=== PATIENT | female | born 1995 | race American Indian/Alaskan Native ===

== ENCOUNTER 2018-03-01 22:18 | Emergency (ER) | payer SELFPAY ==
[2018-03-01 22:25] VITALS: BP 128/78
[2018-03-01] MEDS ORDERED: NORCO 5/325 PO ONE (23:02)
[2018-03-01] MEDS ORDERED: MOTRIN PO ONE (23:02)
--- NOTE | 2018-03-01 23:03 | Emergency Department Report ---
Upper Extremity - HPI Chief Complaint: Extremity Injury, Upper Stated Complaint: RT THUMB PAIN Time Seen by Provider: 03/01/18 23:02 Upper Extremity: Right Thumb Occurred When: Today Mechanism: Crush Severity: moderate Symptoms: Yes Pain with Movement, Yes Swelling, Yes Bruising/Ecchymosis, No Deformity, No Limited Range of Movement, No Numbness, No Weakness, No Laceration or Abrasion Other History: 22-year-old female past medical history none presents with complaint of distal right thumb pain. Patient states that she accidentally smashed the tip of her right thumb on patio door frame earlier this evening. Denies any other injuries. No visible external lacerations. Patient is awake alert and oriented 3 not in acute distress. Small subungual hematoma visible right thumbnail ED Review of Systems ROS: Stated complaint: RT THUMB PAIN Other details as noted in HPI Constitutional: denies: chills, fever Eyes: denies: eye pain, eye discharge, vision change ENT: denies: ear pain, throat pain Respiratory: denies: cough, shortness of breath, wheezing Cardiovascular: denies: chest pain, palpitations Endocrine: no symptoms reported Gastrointestinal: denies: abdominal pain, nausea, diarrhea Genitourinary: denies: urgency, dysuria, discharge Musculoskeletal: as per HPI. denies: back pain, joint swelling, arthralgia Skin: denies: rash, lesions Neurological: denies: headache, weakness, paresthesias Psychiatric: denies: anxiety, depression Hematological/Lymphatic: denies: easy bleeding, easy bruising ED Past Medical Hx - Past Medical History Previous Medical History?: No - Surgical History Past Surgical History?: No - Social History Smoking Status: Former Smoker Substance Use Type: Alcohol - Medications Home Medications: Home Medications Medication Instructions Recorded Confirmed Last Taken Type Ibuprofen [Motrin] 800 mg PO Q8HR PRN #20 tablet 03/01/18 Unknown Rx Upper Extremity Exam - Exam General: Vital signs noted. No distress. Alert and acting appropriately. Head and Torso: No HEENT Abnormality, No Neck Tenderness, No Chest/Lungs Abnormality, No Abdominal Tenderness, No Back Tenderness Shoulder Exam: Yes Normal Range of Motion in Shoulder, No Shoulder Tenderness, No Clavicle Tenderness, No Shoulder Deformity, No AC Joint Tenderness Arm Exam: No Arm/Humerus Tenderness, No Arm Deformity Elbow: No Elbow Tenderness, No Normal Range of Motion in Elbow, No Elbow Deformity Forearm: No Forearm Tenderness, No Forearm Deformity, No Pain with Pronation, No Pain with Supination Wrist: Yes Normal ROM in Wrist (wrist flexion and extension intact), No Wrist Tenderness, No Wrist Deformity, No Snuffbox Tenderness (there is no snuffbox tenderness on exam), No Pain with Axial Thumb Compression Hand: Yes Normal ROM in Digit(s) (range of motion MCPs DIPs and PIPs clinically intact all fingers right hand), No Hand Tenderness, No Hand Deformity, No Digit Tenderness (pain at distal right thumb with small subungual hematoma), No Digit( s) Deformity, No Tendon Dysfunction CMS Exam: Yes Normal Distal Pulses, Yes Normal Capillary Refill, Yes Normal Distal Sensation, No Broken Skin Hand L/R Back: 1 - Multiple subungual hematoma less than 20% of the nailbed surface area ED Course Vital Signs 03/01/18 22:19 Temperature 98.7 F Pulse Rate 89 Respiratory 18 Rate Blood Pressure 128/78 O2 Sat by Pulse 98 Oximetry ED Medical Decision Making - Medical Decision Making A/P: Right thumb contusion, small subungual hematoma right thumb 1-as subungual hematoma is very small and less than 20% of nailbed with no evidence of nail bed fracture no fracture or lifting of nail will not drain at this time. X-ray shows no fracture. Neurovascular exam and range of motion clinically intact right hand and thumb. There is no snuffbox tenderness on exam 2-Alejandro wrap to right hand and thumb, RICE therapy 3-Motrin 800 when necessary Critical care attestation.: If time is entered above; I have spent that time in minutes in the direct care of this critically ill patient, excluding procedure time. ED Disposition Clinical Impression: Sprain of right thumb Qualifiers: Encounter type: initial encounter Sprain of finger site: unspecified site Qualified Code(s): S63.601A - Unspecified sprain of right thumb, initial encounter Contusion of right thumb Qualifiers: Encounter type: initial encounter Damage to nail status: with damage Qualified Code(s): S60.111A - Contusion of right thumb with damage to nail, initial encounter Subungual hematoma of finger of right hand Qualifiers: Encounter type: initial encounter Qualified Code(s): S60.10XA - Contusion of unspecified finger with damage to nail, initial encounter Disposition: - TO HOME OR SELFCARE Is pt being admited?: No Does the pt Need Aspirin: No Condition: Stable Instructions: Finger Sprain (ED), Subungual Hematoma (ED), RICE Therapy (ED) Prescriptions: Ibuprofen [Motrin] 800 mg PO Q8HR PRN #20 tablet PRN Reason: Pain Referrals: [facility] [Provider Group] - 3-5 Days LEONIDAS YOU MD [Staff Physician] - 3-5 Days Forms: Accompanied Note, Work/School Release Form(ED) Time of Disposition: 23:59
--- NOTE | 2018-03-01 23:35 | XRay Report ---
FINAL REPORT PROCEDURE: XR FINGER(S) 2+V RT TECHNIQUE: RIGHT hand radiographs, AP, lateral, and oblique views. CPT 61522-TS HISTORY: squashed right thumb in door COMPARISON: No prior studies are available for comparison. FINDINGS: Fracture (s) and/or Dislocation(s): None . Alignment: Normal . Joint space(s): Normal . Soft tissues: Normal . Bone mineralization: Normal . Foreign bodies: None . IMPRESSION: Normal Examination .
== END 2018-03-02 00:06 | disposition home or self-care (01) ==
LOC: ED 22:18
DX: S63.601A Unspecified sprain of right thumb, initial encounter (principal); S60.111A Contusion of right thumb with damage to nail, initial encounter; S60.10XA Contusion of unspecified finger with damage to nail, initial encounter; W22.8XXA Striking against or struck by other objects, initial encounter; Y93.89 Activity, other specified; Y92.89 Other specified places as the place of occurrence of the external cause; Y99.8 Other external cause status